=== PATIENT | female | born 1965 | race Caucasian/White ===

== ENCOUNTER 2020-09-17 17:35 | Emergency (ER) | payer OTHER, BC ==
[~2020-09-17 17:35] MED LIST: ACIDOPHILUS1 EAC3 PO; Citalopram HBr10 MG PO; FENOFIBRATE145 MG PO; FURO40 PO; LORA.5 PO; METO25ER PO; NAPR220 PO; Prinivil10 MG PO
== END 2020-09-17 18:49 | disposition left against medical advice (07) ==
LOC: ER 17:35
DX: M25.562 Pain in left knee (principal); Z53.21 Procedure and treatment not carried out due to patient leaving prior to being seen by health care provider; Z79.899 Other long term (current) drug therapy
CPT/HCPCS: 99281